=== PATIENT | female | born 1990 | race Caucasian/White ===

== ENCOUNTER 2025-01-04 22:42 | Emergency (ER) | payer OTHER ==
[~2025-01-04] VITALS: Ht 157.5 cm; Wt 129.6 kg
[2025-01-05 00:03] VITALS: BP 128/69; PULSE 99; RESP 18; TEMP 98.6; O2SAT 99
== END 2025-01-05 00:04 | disposition home or self-care (01) ==
LOC: ER 22:44
DX: M77.11 Lateral epicondylitis, right elbow (principal)
CPT/HCPCS: 73080; 99283